=== PATIENT | male | born 1945 | race Caucasian/White ===

== ENCOUNTER 2017-07-05 16:18 | Emergency (ER) | payer BC, MEDICARE ==
[~2017-07-05] VITALS: Ht 167.6 cm; Wt 75.0 kg
[2017-07-05 16:33] VITALS: BP 135/60; PULSE 85; RESP 18; TEMP 97.6; O2SAT 97
[2017-07-05 17:49] VITALS: BP 155/67; PULSE 71; RESP 18; O2SAT 99
[2017-07-05] MEDS ORDERED: LOSA50TA PO (17:49)
[2017-07-05] MEDS ORDERED: ASPI81CH6 PO (17:49)
[2017-07-05] MEDS ORDERED: PIOG15TA5 PO (17:49)
[2017-07-05] MEDS ORDERED: ROSU1TAB10 PO (17:49)
[2017-07-05] MEDS ORDERED: METF1000 PO (17:49)
--- NOTE | 2017-07-05 17:49 | PD ---
HPI Chief Complaint: Skin Problem Time Seen by Provider: 17:47 (Robert Jean) Time Seen by Provider: 17:47 (Brannon Darden MD) Travel History International Travel<30 days: No Contact w/Intl Traveler<30days: No Traveled to known affect area: No (Robert Jean) Allergies-Medications (Allergen,Severity, Reaction): Coded Allergies: fluconazole (Unverified Allergy, Severe, HIVE, SWELLING, 07/05/17) penicillin G (Unverified Allergy, Severe, Hives, 07/05/17) clotrimazole (Verified Allergy, Unknown, Rash, 07/05/17) Reported Meds & Prescriptions Reported Meds & Active Scripts Active Reported Aspirin Low Dose (Aspirin) 81 Mg Chew 81 Mg PO DAILY Rosuvastatin (Rosuvastatin Calcium) 40 Mg Tab 40 Mg PO DAILY Losartan (Losartan Potassium) 50 Mg Tab 25 Mg PO DAILY Pioglitazone (Pioglitazone HCl) 15 Mg Tab 15 Mg PO DAILY Metformin (Metformin HCl) 1,000 Mg Tab 1,000 Mg PO BID (Brannon Darden MD) Data Data Last Documented VS Vital Signs Date Time Temp Pulse Resp B/P (MAP) Pulse Ox O2 Delivery O2 Flow Rate FiO2 07/05/17 17:49 71 18 155/67 (96) 99 Room Air 07/05/17 16:33 97.6 (Brannon Darden MD) Orders Orders Ed Discharge Order (07/05/17 18:09) (Brannon aDrden MD) MDM Medical Decision Making Medical Screen Exam Complete: Yes Emergency Medical Condition: Yes (Brannon Darden MD) Diagnosis Primary Impression: Rash of entire body Additional Instructions: Recommend discontinuing (STOP) any creams. Discontinue (STOP) Predinsone. If you have any fevers return to the emergency department. Follow up with your parking analyst for evaluation on saturday and consideration of biopsy. Take benadryl as needed for itching. Med/Other Pt SpecificInfo: Prescription(s) given (Brannon Darden MD) Scripts Epinephrine Inj (Epipen 2-Ajit Inj) 0.3 Mg/0.3 Ml Pfpen 0.3 MG IM ONCE Y for ALLERGIC REACTION, #1 PACK 0 Refills Prov: Brannon Darden MD 07/05/17 Disposition: 01 DISCHARGE HOME Condition: Stable Robert Jean Jul 05, 2017 17:49 Brannon Darden MD Jul 05, 2017 18:09
[2017-07-05] MEDS ORDERED: EPIP0.3I IM (18:19)
== END 2017-07-05 18:28 | disposition home or self-care (01) ==
LOC: NEPD 16:18
DX: R21 Rash and other nonspecific skin eruption (principal)
CPT/HCPCS: 99283